=== PATIENT | female | born 1955 | race Two or more races ===

== ENCOUNTER → 2023-08-22 12:00 | Outpatient (REF) | payer OTHER, SELFPAY | LOC: WDC 12:00 | PROVIDERS: ATTENDING PHYSICIAN Family Medicine | DX: Z12.31 Encounter for screening mammogram for malignant neoplasm of breast (principal) | CPT/HCPCS: 77063; 77067 ==

== ENCOUNTER → 2023-12-15 11:22 | Outpatient (REF) | payer OTHER, SELFPAY | LOC: HWRAD 11:22 | PROVIDERS: ATTENDING PHYSICIAN Family Medicine | DX: R10.10 Upper abdominal pain, unspecified (principal) | CPT/HCPCS: 76700 ==

== ENCOUNTER → 2024-04-21 15:03 | Outpatient (REF) | payer SELFPAY | LOC: HWRAD 15:03 | PROVIDERS: ATTENDING PHYSICIAN Internal Medicine; FAMILY PHYSICIAN Family Medicine; REFERRING PHYSICIAN Internal Medicine Cardiovascular Disease | DX: R73.03 Prediabetes (principal) | CPT/HCPCS: 75571 ==

== ENCOUNTER → 2024-04-26 13:55 | Outpatient (REF) | payer OTHER, SELFPAY | LOC: RAD 13:55 | PROVIDERS: ATTENDING PHYSICIAN Family Medicine | DX: R59.0 Localized enlarged lymph nodes (principal) | CPT/HCPCS: 76536 ==

== ENCOUNTER → 2024-04-28 13:59 | Outpatient (REF) | payer OTHER, SELFPAY | LOC: RAD 13:59 | PROVIDERS: ATTENDING PHYSICIAN Internal Medicine; FAMILY PHYSICIAN Family Medicine; REFERRING PHYSICIAN Internal Medicine Cardiovascular Disease | DX: R09.89 Other specified symptoms and signs involving the circulatory and respiratory systems (principal); Z82.49 Family history of ischemic heart disease and other diseases of the circulatory system | CPT/HCPCS: 93880 ==

== ENCOUNTER → 2024-06-07 12:57 | Outpatient (REF) | payer OTHER, SELFPAY | LOC: HWRAD 12:57 | PROVIDERS: ATTENDING PHYSICIAN Internal Medicine Critical Care Medicine; FAMILY PHYSICIAN Family Medicine | DX: R91.8 Other nonspecific abnormal finding of lung field (principal) | CPT/HCPCS: 71250 ==

== ENCOUNTER → 2024-08-16 13:16 | Outpatient (REF) | payer OTHER, SELFPAY | LOC: RAD 13:16 | PROVIDERS: ATTENDING PHYSICIAN Family Medicine | DX: R10.32 Left lower quadrant pain (principal) | CPT/HCPCS: 74177; Q9967 ==

== ENCOUNTER 2024-08-16 17:49 | Emergency (ER) | payer OTHER, SELFPAY ==
[2024-08-16 17:57] VITALS: BP 189/86
[2024-08-16 18:20] LABS: % Basophils 0.3 % (0-2); % Eosinophils 0.9 % (0-6); % Immature Granulocytes 0.3 % (0-0.5); % Lymphocytes 22.9 % (20.5-51.1); % Neutrophils 67.6 % (42.2-75.2); Absolute Eosinophils 0.1 10^3/uL (0-0.7); Absolute Lymphocytes 1.7 10^3/uL (1.2-3.4); Absolute Monocytes 0.6 10^3/uL (0.1-0.6); Absolute Neutrophils 5.1 10^3/uL (1.4-6.5); Hematocrit 41.9 % (37.0-47.0); Hemoglobin 14.5 g/dL (12.0-16.0); Mean Corp Hgb Conc. 34.6 g/dL (33.0-37.0); Mean Corpuscular Hgb 31.2 pg (27.0-31.0); Mean Corpuscular Volume 90.1 fL (81.0-99.0); Mean Platelet Volume 10.7 fL (7.4-10.4); Nucleated Red Blood Cells % 0 %; Platelet Count 179 10^3/uL (130-400); Red Blood Cell Count 4.65 10^6/uL (4.20-5.40); Red Cell Dist. Width 12.1 % (11.5-14.5); White Blood Cell Count 7.5 10^3/uL (4.8-10.8)
[2024-08-16 18:45] LABS: ALT (SGPT) 42 U/L (0-35); AST (SGOT) 27 U/L (14-36); Albumin 4.4 g/dl (3.5-5.0); Alkaline Phosphatase 88 U/L (38-126); Blood Urea Nitrogen 11 mg/dl (7-17); Calcium 9.9 mg/dl (8.4-10.2); Carbon Dioxide 25 mmol/L (22-30); Chloride 99 mmol/L (98-107); Glucose 111 mg/dl (70-99); Potassium 4.1 mmol/L (3.5-5.1); Sodium 135 mmol/L (135-145); Total Bilirubin 1.1 mg/dl (0.2-1.3); Total Protein 6.9 g/dl (6.3-8.2); eGFR > 60.00
[2024-08-16 18:50] LABS: Lipase 46 U/L (23-300)
[2024-08-16 20:10] VITALS: BP 160/84
--- NOTE | 2024-08-16 20:52 | ED.GENMED ---
History of Present Illness
General
Chief Complaint: Abdominal Pain
Source: patient
Exam Limitations: none
Time Seen by Provider: 08/16/24 20:36
Nursing documentation reviewed up to this point in time: agreed with
History of Present Illness
History of Present Illness:
Patient presents to ED for evaluation after outpatient CT scan, ordered by her primary care physician revealed acute diverticulitis. Patient states that she has had lower abdominal pain along with cramping and diarrhea over the past 3 days. Denies
fever or chills. Denies nausea or vomiting. Denies loss of appetite. Denies trauma. Denies back pain. Denies difficulty with urination. Denies previous history of similar symptoms. Patient reports having had normal colonoscopy 3 years ago.
Past History
Past History
ED Past Medical History: HTN and Other
ED Past Surgical History: Gynecological (Total Hysterectomy) and Other (Sinus surgery)
Social History
Tobacco: Former smoker
Alcohol: Occasional
Personal:
Living: with family
Review of Systems
Review of Systems
Allergies reviewed?: Yes
All Other Systems: ROS reviewed and negative except as documented in HPI and ROS
Constitutional: Reports no symptoms; Denies fever
ABD/GI: Reports abdominal pain and diarrhea; Denies nausea or vomiting
Musculoskeletal: Reports no symptoms
Skin: Reports no symptoms
Neurological: Reports no symptoms
Phy Exam
Physical Exam
Physical Exam:
Physical Exam
General: no apparent distress, not acutely ill. afebrile
Head: nc/at. eomi
Neck: supple. normal range of motion.
Heart: s1/s2 regular rate and rhythm, no murmur.
Lungs: no acute respiratory distress. clear bilaterally
Abdomen: normal bowel sounds. not tender. no distention
Neuro: alert and oriented x 3. no focal neurological deficits
Skin: no rash
Psychiatric: well kept. interactive and cooperative
Extremities: no edema. no calf tenderness.
Course
Orders/Labs/Results
Orders:
Orders
08/16/24 18:10
Complete Blood Count/With Diff Urgent
Comprehensive Metabolic Panel Urgent
Lipase Urgent
08/16/24 20:52
Amoxicillin 875 mg/Clav 125 mg [Augmentin 875 mg/125 mg] 1 tablet PO NOW STA
Abnormal Lab Results
08/16/24
18:10
MCH 31.2 H pg
(27.0-31.0)
MPV 10.7 H fL
(7.4-10.4)
Glucose 111 H mg/dl
(70-99)
ALT 42 H U/L
(0-35)
08/16/24 18:10
08/16/24 18:10
Vital Signs
Initial and Last Documented VS:
Initial Vital Signs
Temp Pulse Resp BP Pulse Ox
97.8 F 73 16 189/86 98
08/16/24 17:57 08/16/24 17:57 08/16/24 17:57 08/16/24 17:57 08/16/24 17:57
Last Documented Vital Signs
Temp Pulse Resp BP Pulse Ox
97.8 F 80 20 160/84 98
08/16/24 20:10 08/16/24 20:10 08/16/24 20:10 08/16/24 20:10 08/16/24 20:10
MDM/Problems Addressed
MDM/Problems Addressed:
CT report reviewed and discussed with patient and family. Acute diverticulitis noted, along with additional incidental findings, to be discussed with her primary care physician.
Patient otherwise remains afebrile, hemodynamically stable, and without acute distress. As such, after discussion, patient will be started on Augmentin, with recommendation to follow-up with PCP for reevaluation later this week. Advised to return
to ED with worsening symptoms.
*Critical Care Note
Total Time (30-74mins, 75-104mins- exclusive of procedures): Not Applicable
ED Attending Note
-
Portions of this chart may have been created with voice recognition software.� Occasional wrong word or��sound alike� substitutions may have occurred due to the inherent limitations of voice recognition software.
Discharge Plan
Departure
Patient Disposition: Home (Routine Discharge)
Date of Disposition: 08/16/24
Time of Disposition: 20:54
Patient with high blood pressure during this ER visit?: Yes
Condition: Good
Discharge Problem:
Diverticulitis
Instructions: Diverticulitis (DC)
Prescriptions:
New
amoxicillin-pot clavulanate 875-125 mg tablet
1 tab PO Q12H Qty: 19 0RF
No Action
ascorbic acid (vitamin C) [Vitamin C] 500 MG tablet
500 mg PO .OCCASIONALLY
Patient Comments:
medication list taken from most recent cardiac office note date 06/25/23.
Sulferzyme
1 tab PO DAILY
Patient Comments:
medication list taken from most recent cardiac office note date 06/25/23.
atorvastatin 20 mg Tablet
20 mg PO DAILY
Patient Comments:
medication list taken from most recent cardiac office note date 06/25/23.
metoprolol succinate 50 mg Tablet Extended Release 24 Hr
50 mg PO DAILY
Patient Comments:
medication list taken from most recent cardiac office note date 06/25/23.
calcium carbonate [Super Calcium] 600 mg calcium (1,500 mg) Tablet
600 mg PO .OCCASIONALLY
Patient Comments:
medication list taken from most recent cardiac office note date 06/25/23.
Fish Oil Capsule
1,000 mg PO DAILY
Patient Comments:
medication list taken from most recent cardiac office note date 06/25/23.
D-Hist D 3.5-45-1 mg Tablet Extended Release 12 Hr
1 tab PO PRN MDD allergies PRN (Reason: congestion)
Patient Comments:
medication list taken from most recent cardiac office note date 06/25/23.
Homocysteine Support
2 cap PO DAILY
Patient Comments:
medication list taken from most recent cardiac office note date 06/25/23.
Probiotic
2 cap PO DAILY
Patient Comments:
medication list taken from most recent cardiac office note date 06/25/23.
magnesium
100 mg PO HS
Patient Comments:
medication list taken from most recent cardiac office note date 06/25/23.
berberine-herbal comb no.18 Capsule
1 cap PO DAILY
Diabenil
3 cap PO DAILY
Inflamatone
2 cap PO DAILY
Omeg 3 Fish Oil
2 cap PO DAILY
Vitamin D3 K1 And K2 5,000 units capsule
1 cap PO DAILY
Activity Restrictions/Additional Instructions:
As discussed, please follow-up with your primary care physician for reevaluation. Please consider return to ED with worsening symptoms, i.e. fever/worsening pain/vomiting. Your prescription has been sent electronically to [facility] pharmacy in [place].
Interventions
Interventions:
*Risk Screen - Suicide Last Done: 08/16/24 17:57
*General Assessment Last Done: 08/16/24 17:57
*Neglect/Abuse Screening Last Done: 08/16/24 17:57
*ED- Fall Risk Assessment Last Done: 08/16/24 21:58
*ED COVID-19 Vaccine History Last Done: 08/16/24 17:57
*Nursing Disposition Last Done: 08/16/24 21:58
Discharge Date and Time
Discharge Date/Time: 08/16/24 21:59
Print Language: CITIZEN [place]
[2024-08-16] MEDS: AUGMENTIN 875 MG/125 MG 1 TABLET PO (21:01)
== END 2024-08-16 21:59 | disposition home or self-care (01) ==
LOC: EMR 17:49
PROVIDERS: Emergency Medicine; EMERGENCY PHYSICIAN Emergency Medicine; FAMILY PHYSICIAN Family Medicine
DX: K57.92 Diverticulitis of intestine, part unspecified, without perforation or abscess without bleeding (principal); I10 Essential (primary) hypertension; Z87.891 Personal history of nicotine dependence; Z90.710 Acquired absence of both cervix and uterus
CPT/HCPCS: 99283; 80053; 83690; 85025

== ENCOUNTER → 2024-09-01 17:03 | Outpatient (REF) | payer OTHER, SELFPAY | LOC: WDC 17:03 | PROVIDERS: ATTENDING PHYSICIAN Obstetrics & Gynecology; FAMILY PHYSICIAN Family Medicine | DX: Z12.31 Encounter for screening mammogram for malignant neoplasm of breast (principal) | CPT/HCPCS: 77063; 77067 ==

== ENCOUNTER → 2024-09-10 10:37 | Outpatient (REF) | payer OTHER, SELFPAY | LOC: RAD 10:37 | PROVIDERS: ATTENDING PHYSICIAN Obstetrics & Gynecology; FAMILY PHYSICIAN Family Medicine | DX: Z78.0 Asymptomatic menopausal state (principal) | CPT/HCPCS: 77080 ==

== ENCOUNTER → 2024-09-14 09:32 | Outpatient (REF) | payer OTHER, SELFPAY | LOC: WDC 09:32 | PROVIDERS: ATTENDING PHYSICIAN Obstetrics & Gynecology; FAMILY PHYSICIAN Family Medicine | DX: R92.8 Other abnormal and inconclusive findings on diagnostic imaging of breast (principal) | CPT/HCPCS: 76642 ==

== ENCOUNTER 2025-04-18 06:23 | Day surgery (SDC) | payer OTHER, SELFPAY | END 2025-04-18 09:30 | disposition home or self-care (01) | LOC: GI 06:23 | PROVIDERS: ATTENDING PHYSICIAN Internal Medicine Gastroenterology | DX: Z12.11 Encounter for screening for malignant neoplasm of colon (principal); K57.30 Diverticulosis of large intestine without perforation or abscess without bleeding; D12.3 Benign neoplasm of transverse colon; K63.5 Polyp of colon; K63.89 Other specified diseases of intestine; Z80.0 Family history of malignant neoplasm of digestive organs | CPT/HCPCS: 45385; 45380; 88305 ==